=== PATIENT | male | born 1960 | race Two or more races ===

== ENCOUNTER 2024-03-10 20:31 | Observation (INO) | payer OTHER ==
[2024-03-10] MEDS ORDERED: DIPHTH,PERTUSS(ACELL),TET 0.5 ML DISP.SYRIN IM ONE (22:15)
[2024-03-10] MEDS: DIPHTH,PERTUSS(ACELL),TET 0.5 ML DISP.SYRIN IM ONE (22:26)
[2024-03-11] MEDS ORDERED: ACETAMINOPHEN INJECTION 100 ML IVPB ONE (00:43)
[2024-03-11] MEDS: ACETAMINOPHEN 1000 MG/100 ML BAG IVPB ONE (00:46)
[2024-03-11 01:29] LABS: HEMATOCRIT 37.6 % (35.4-49); HEMOGLOBIN 12.2 GM/dL (11.7-16.9); MCH 24.7 pg (25.7-33.7); MCHC 32.5 g/dl (32.0-35.9); PLATELET COUNT 209 10^3/uL (134-434); RBC 4.95 M/mm3 (4.00-5.60); RDW 14.8 % (11.9-15.9); WHITE BLOOD COUNT 10.3 K/mm3 (4.0-10.0)
[2024-03-11 01:40] LABS: POTASSIUM 3.7 mmol/L (3.5-5.1)
[2024-03-11 01:41] LABS: CALCIUM 9.2 mg/dL (8.5-10.1)
[2024-03-11 01:42] VITALS: RESP 18
[2024-03-11 01:42] LABS: ALBUMIN 3.9 g/dl (3.4-5.0); BLOOD UREA NITROGEN 9.2 mg/dL (7-18)
[2024-03-11 01:45] LABS: CREATININE 1.1 mg/dL (0.55-1.3)
[2024-03-11 01:47] LABS: BILIRUBIN,TOTAL 0.4 mg/dL (0.2-1); TOT PROT 8.1 g/dl (6.4-8.2)
[2024-03-11 06:07] VITALS: BMI 24.4
[2024-03-11] MEDS: ACETAMINOPHEN 325 MG TABLET (FP) PO PRN (06:49)
[2024-03-12 09:10] LABS: ALBUMIN 4.2 g/dl (3.4-5.0); BILIRUBIN,TOTAL 0.5 mg/dl (0.2-1); CALCIUM 9.1 mg/dl (8.5-10.1); TOT PROT 7.2 g/dl (6.4-8.2)
[2024-03-12 10:02] LABS: BASO % 0.3 % (0-2.0); EOS % 3.6 % (0-4.5); HEMATOCRIT 35.6 % (35.4-49); HEMOGLOBIN 11.7 GM/dL (11.7-16.9); MCH 24.9 pg (25.7-33.7); MCHC 32.9 g/dl (32.0-35.9); MEAN CELL VOLUME 75.7 fl (80-96); MEAN PLT VOLUME 8.2 fl (7.5-11.1); MONO % 8.4 % (3.8-10.2); NEUT % 54.7 % (42.8-82.8); PLATELET COUNT 197 10^3/uL (134-434); RBC 4.71 M/mm3 (4.00-5.60); RDW 15.1 % (11.9-15.9); WHITE BLOOD COUNT 7.5 K/mm3 (4.0-10.0)
[2024-03-12 14:26] VITALS: TEMP 98.5
[2024-03-12] MEDS: AMOX TR/POT CLAV 875MG/125MG TABLETS (FP) PO SCH (15:40)
[2024-03-12 18:36] VITALS: BP 118/78; PULSE 79
== END 2024-03-12 19:25 | disposition home or self-care (01) ==
LOC: FER 20:31 → FM/S 03-11 02:20
PROVIDERS: ADMIT Internal Medicine
PROC: 3E033NZ Introduction of Analgesics, Hypnotics, Sedatives into Peripheral Vein, Percutaneous Approach (ICD-10-PCS; principal; 2024-03-11)
PROC: 3E0234Z Introduction of Serum, Toxoid and Vaccine into Muscle, Percutaneous Approach (ICD-10-PCS; 2024-03-11)
DX: F07.81 Postconcussional syndrome (principal); R94.4 Abnormal results of kidney function studies; S00.81XA Abrasion of other part of head, initial encounter; W05.1XXA Fall from non-moving nonmotorized scooter, initial encounter; Y93.89 Activity, other specified; Y92.410 Unspecified street and highway as the place of occurrence of the external cause
CPT/HCPCS: 36415; 70450-TC; 70486-TC; 71045-TC-FY; 72125-TC; 73130-TC-RT-FY; 73562-TC-LT-FY; 80053; 85025; 85027; 90471; 90715; 93005; 93306-TC; 96374; 97116-GP; 97161-GP; 99285-25; G0378; J0131